=== PATIENT | female | born 1960 | race Caucasian/White ===

== ENCOUNTER 2020-05-02 12:09 | Emergency (ER) | payer OTHER ==
[~2020-05-02] VITALS: Ht 162.6 cm; Wt 120.2 kg
--- NOTE | 2020-05-02 12:38 | NUR ---
BIBS TOP ER BED 10. AAOX4. NOT IN RESP DISTRESS. AMBUALTORY. CAME IN FOR R GROIN PAIN THAT IS RADIATING TO RLQ ABDOMEN. PAIN IS PRESENT UPON PALPATION WHICH IS AGGREVATED BY PRESSURE OTHERWISE PAIN IS NOT PRESENT. PT REPORTS THAT THIS HAS BEEN GOING ON FOR THE PAST WEEK. PT DENIES AND NAUSEA AND VOMMITING. MD WAS AT THE BEDSIDE FOR EVAL. AWAITING ORDERS
--- NOTE | 2020-05-02 12:57 | NUR ---
URINE COLLETED FROM PT AND BLOOD DRAWN
[2020-05-02 12:59] LABS: BASOPHILS # (AUTO) 0.1 /CMM (0.0-0.2); BASOPHILS % (AUTO) 0.7 % (0.0-2.0); EOSINOPHILS % (AUTO) 1.6 % (0.0-6.0); HEMATOCRIT 39 % (33-45); HEMOGLOBIN 13.5 g/dL (11.5-14.8); LYMPHOCYTES # (AUTO) 1.6 /CMM (0.8-4.8); MEAN CORPUSCULAR HGB CONC 35 g/dl (31.0-36.0); MEAN CORPUSCULAR VOLUME 97 fL (82-100); MONOCYTES # (AUTO) 0.7 /CMM (0.1-1.30); NEUTROPHILS # (AUTO) 5.2 /CMM (1.8-8.9); NEUTROPHILS % (AUTO) 67.7 % (43.0-81.0); PLATELET COUNT (AUTO) 149 /CMM (150-450); RED BLOOD CELL COUNT(AUTO) 4.04 MIL/uL (4.0-5.2); WHITE BLOOD COUNT (AUTO) 7.6 K/uL (4.3-11.0)
[2020-05-02 13:02] LABS: APPEARANCE,URINE Slightly Cloudy (CLEAR); BILIRUBIN,URINE SMALL (NEGATIVE); BLOOD, URINE Small Ery/uL (NEGATIVE); COLOR,URINE Dark (YELLOW); KETONES,URINE Trace (NEGATIVE); LEUKOCYTE ESTERASE ,URINE Negative (NEGATIVE); NITRITE, URINE Negative (NEGATIVE); PH,URINE 5.5 (5.0-8.0); PROTEIN,URINE Negative (NEGATIVE); UGLUCOSE Negative (NEGATIVE); UROBILINOGEN,URINE 0.2 EU/dL (0.2)
[2020-05-02 13:09] LABS: BACTERIA,URINE Many /HPF (None Seen); SQUAMOUS EPITHELIAL CELL,UR Moderate /HPF (None Seen)
[2020-05-02 13:13] LABS: ALBUMIN 3.7 g/dL (3.4-5.0); BILIRUBIN,DIRECT 0.1 mg/dL (0.0-0.2); BILIRUBIN,TOTAL 0.5 mg/dL (0.2-1.0); CREATININE 0.9 mg/dL (0.6-1.3); POTASSIUM 3.8 mmol/L (3.5-5.1); TOTAL PROTEIN, SERUM 6.9 g/dL (6.4-8.2)
--- NOTE | 2020-05-02 13:30 | NUR ---
ABDIAZIZ FRENCH FOR PSYCH EVAL AT BEDSIDE.
--- NOTE | 2020-05-02 14:15 | NUR ---
Patient discharged to home in stable condition. Written and verbal after care instructions given. Patient verbalizes understanding of instruction. Pt ambulatory with a steady gait
[2020-05-02 14:17] VITALS: BP 147/76
== END 2020-05-02 14:17 | disposition home or self-care (01) ==
LOC: ER 12:13
DX: N39.0 Urinary tract infection, site not specified (principal)
CPT/HCPCS: 36415; 80048-TC; 80076-TC; 81000-TC; 85025-TC; 85730-TC; 87086-TC